=== PATIENT | female | born 1975 | race African-American/Black ===

== ENCOUNTER 2023-05-25 18:22 | Emergency (ER) | payer BC ==
[~2023-05-25] VITALS: Ht 160 cm; Wt 74.7 kg
[2023-05-25 22:10] VITALS: BP 141/98; PULSE 98
[2023-05-25] MEDS ORDERED: IPRATROPIUM BROM 0.5 MG/2.5ML INH SOL NEB ONE (22:15)
[2023-05-25] MEDS ORDERED: methylPREDNISolone SOD SUCC 125 MG/2 ML VL IM ONE (22:15)
[2023-05-25] MEDS ORDERED: ALBUTEROL SULF 2.5 MG/0.5ML(0.5%) NEB SOLN NEB ONE (22:15)
[2023-05-25 22:23] VITALS: RESP 22; O2SAT 99
[2023-05-25] MEDS ORDERED: DIPH-491 PO (22:50)
[2023-05-25] MEDS ORDERED: ALBUAER3 IN (22:50)
[2023-05-25] MEDS ORDERED: PRED20TA2 PO (22:50)
[2023-05-25] MEDS ORDERED: diphenhdrAMINE HCL 50 MG/1 ML VL IM ONE (23:00)
[2023-05-26] MEDS ORDERED: diphenhdrAMINE HCL 50 MG/1 ML VL IM ONE (00:15)
== END 2023-05-26 02:13 | disposition home or self-care (01) ==
LOC: ER 18:22
DX: J45.901 Unspecified asthma with (acute) exacerbation (principal); T78.49XA Other allergy, initial encounter; I10 Essential (primary) hypertension; Z88.8 Allergy status to other drugs, medicaments and biological substances; Z79.899 Other long term (current) drug therapy; X58.XXXA Exposure to other specified factors, initial encounter
CPT/HCPCS: 94640; 96372; 99284; J1200; J2930; J7644